=== PATIENT | male | born 1975 | race African-American/Black ===

== ENCOUNTER → 2017-04-25 | Outpatient (CLI) | payer OTHER ==
--- NOTE | 2017-04-25 18:42 | PCVCIMAG ---
APPROVED REPORT Exam: Stress Echocardiogram Indication: Hyperlipidemia, Hypertension, Myocardial Bridge Patient Location: Echo lab Stress Nurse: Mckenzie Funez RN Status: routine Ht: 6 ft 0 in HR: 81 bpm BP: 110/70 mmHg Rhythm: NSR Procedure The patient underwent an Exercise Stress Test using the Shamar Protocol. Blood pressure, heart rate, and EKG were monitored. An Echocardiogram was performed by radiation / chemistry technician in four stages in quad fashion. At peak stress, four selected images were obtained and placed side by side with resting images for comparison. Stress Test Details Stress Test: Exercise stress testing was performed using a Shamar protocol. HR Resting HR: 81 bpmMax Heart Rate (APMHR): 180 bpm Max HR Achieved: 157 bpmTarget HR (85% APMHR): 153 bpm % of APMHR: 87 HR response to stress: Normal HR response to stress BP Resting BP: 110/70 mmHg Max BP: 140/70 mmHg ECG Resting ECG: Sinus Rhythm Stress ECG: Sinus Rhythm Clinical Reason for Termination: Maximal effort Exercise duration: 10 min 28 sec Highest Stage Achieved: Stage 4: 4.2 mph at 16% grade. Exercise capacity: 13.40 METs Overall Exercise Capacity for Age: Good Pre-Stress Echo The resting Echocardiogram showed normal left ventricular contractility with an estimated Ejection Fraction of about 55-60%. Normal wall motion in all segments on baseline images. Post-Stress Echo The stress Echocardiogram showed normal left ventricular contractility with an estimated Ejection Fraction of about 60-65%. Clinical No clinical or ECG evidence for ischemia. Conclusion Clinical Response: Non-ischemic Exercise Capacity: Average Stress ECG Response: Non-ischemic Stress Echo Images: Non-ischemic The left ventricle is normal in size and wall thickness in both the rest and stress images. Other Information Study Quality: Good <Conclusion> The left ventricle is normal in size and wall thickness in both the rest and stress images.
== END | disposition home or self-care (01) ==
LOC: PCVCIMAG 09:48
PROVIDERS: ATTEND Internal Medicine Cardiovascular Disease
DX: Q24.5 Malformation of coronary vessels (principal); I10 Essential (primary) hypertension; E78.00 Pure hypercholesterolemia, unspecified; Z72.0 Tobacco use
CPT/HCPCS: 93325; 93351

== ENCOUNTER → 2019-05-07 | Outpatient (CLI) | payer OTHER ==
--- NOTE | 2019-05-07 10:35 | PCVCIMAG ---
APPROVED REPORT Study performed: 05/07/2019 09:54:28 Exam: Stress Echocardiogram Indication: myocardial bridge of LAD, htn, hlp, tobacco use Patient Location: Echo lab Stress Nurse: Paola Silva RN Status: routine Ht: 6 ft 0 in HR: 85 bpm BP: 116/86 mmHg Rhythm: NSR Procedure The patient underwent an Exercise Stress Test using the Shamar Protocol. Blood pressure, heart rate, and EKG were monitored. An Echocardiogram was performed by drain technician in four stages in quad fashion. At peak stress, four selected images were obtained and placed side by side with resting images for comparison. Stress Test Details Stress Test: Exercise stress testing was performed using a Shamar protocol. HR Resting HR: 85 bpmMax Heart Rate (APMHR): 178 bpm Max HR Achieved: 164 bpmTarget HR (85% APMHR): 151 bpm % of APMHR: 92 Recovery HR: 109 bpm HR response to stress: Normal HR response to stress BP Resting BP: 116/86 mmHg Max BP: 170/100 mmHg Recovery BP: 120/82 mmHg BP response to stress: Normal blood pressure response to stress. ECG Resting ECG: Sinus Rhythm Stress ECG: Sinus Rhythm ST Change: Normal Arrhythmia: PACs and PVCs Recovery ECG: Sinus Rhythm Recovery ST Change: Normal Recovery Arrhythmia: PACs Clinical Reason for Termination: Maximal effort Stress Symptoms: Leg Fatigue, Dyspnea Exercise duration: 9 min 16 sec Highest Stage Achieved: Stage 3: 3.4 mph at 14% grade. Exercise capacity: 10.9 METs Overall Exercise Capacity for Age: Normal Scale: Sedentary Angina Score: None Pre-Stress Echo The resting Echocardiogram showed normal left ventricular contractility with an estimated Ejection Fraction of about >55%. The resting echocardiogram demonstrated normal wall motion in all wall segments. Post-Stress Echo The stress Echocardiogram showed normal left ventricular contractility with an estimated Ejection Fraction of about 65%. Compared to rest, there were no stress-induced wall motion abnormalities. Clinical No clinical or ECG evidence for ischemia. Conclusion Clinical Response: Non-ischemic Exercise Capacity: Average Stress ECG Response: Non-ischemic Stress Echo Images: Non-ischemic Normal color doppler. No regurgitation or stenosis present on pulmonic, mitral and aortic valves. Mild tricuspid regurgitation with PAP of 37 mmHg, no stenosis. Other Information Study Quality: Adequate <Conclusion> Normal color doppler. No regurgitation or stenosis present on pulmonic, mitral and aortic valves. Mild tricuspid regurgitation with PAP of 37 mmHg, no stenosis.
== END | disposition home or self-care (01) ==
LOC: PCVCIMAG 09:47
PROVIDERS: ATTEND Internal Medicine Cardiovascular Disease
DX: I07.1 Rheumatic tricuspid insufficiency (principal); I10 Essential (primary) hypertension; F17.200 Nicotine dependence, unspecified, uncomplicated
CPT/HCPCS: 93325; 93351